=== PATIENT | female | born 1990 | race Caucasian/White ===

== ENCOUNTER → 2017-11-27 09:40 | Outpatient (CLI) | payer BC, SELFPAY ==
[2017-11-27 10:55] LABS: hCG Titer Quant., Serum 2 mIU/mL (<9 non-preg)
== END ==
PROVIDERS: Visit Provider Obstetrics & Gynecology Reproductive Endocrinology
DX: Z32.00 Encounter for pregnancy test, result unknown (principal)
CPT/HCPCS: 36415; 84702

== ENCOUNTER → 2019-05-20 | Outpatient (CLI) | payer BC, SELFPAY ==
[2019-05-20 09:13] LABS: hCG Titer Quant., Serum 208 mIU/mL (1-3)
== END | disposition home or self-care (01) ==
PROVIDERS: Referring Provider Obstetrics & Gynecology Reproductive Endocrinology; Visit Provider Obstetrics & Gynecology Reproductive Endocrinology
DX: Z32.00 Encounter for pregnancy test, result unknown (principal)
CPT/HCPCS: 36415; 84702

== ENCOUNTER → 2019-05-25 | Outpatient (CLI) | payer BC, SELFPAY ==
[2019-05-25 09:36] LABS: hCG Titer Quant., Serum 1664 mIU/mL (1-3)
== END | disposition home or self-care (01) ==
LOC: LAB 08:23
PROVIDERS: Referring Provider Obstetrics & Gynecology Reproductive Endocrinology; Visit Provider Obstetrics & Gynecology Reproductive Endocrinology
DX: Z32.01 Encounter for pregnancy test, result positive (principal)
CPT/HCPCS: 36415; 84702

== ENCOUNTER → 2019-07-20 | Outpatient (CLI) | payer BC, SELFPAY ==
[2019-07-20 09:44] LABS: hCG Titer Quant., Serum 8 mIU/mL (1-3)
== END | disposition home or self-care (01) ==
PROVIDERS: Referring Provider Obstetrics & Gynecology Reproductive Endocrinology; Visit Provider Obstetrics & Gynecology Reproductive Endocrinology
DX: O02.1 Missed abortion (principal)
CPT/HCPCS: 36415; 84144; 84702

== ENCOUNTER → 2019-07-22 | Outpatient (CLI) | payer BC, SELFPAY ==
[2019-07-22 10:58] LABS: Glucose 75GTT - Fasting 87 mg/dL (70-99)
[2019-07-22 11:04] LABS: Insulin 8.4 mU/L (2.6-37.6)
[2019-07-22 11:52] LABS: Glucose 75GTT - 30 minutes 107 mg/dL (100-160)
[2019-07-22 11:53] LABS: Glucose 75GTT - 60 minutes 100 mg/dL (100-160)
[2019-07-22 12:56] LABS: Glucose 75GTT - 120 minutes 81 mg/dL (70-140)
== END | disposition home or self-care (01) ==
LOC: LAB 10:02
PROVIDERS: Referring Provider Obstetrics & Gynecology Reproductive Endocrinology; Visit Provider Obstetrics & Gynecology Reproductive Endocrinology
DX: Z31.41 Encounter for fertility testing (principal)
CPT/HCPCS: 36415; 82951; 82952; 83525

== ENCOUNTER → 2019-07-27 | Outpatient (CLI) | payer BC, SELFPAY ==
[2019-07-27 09:13] LABS: hCG Titer Quant., Serum 5 mIU/mL (1-3)
== END | disposition home or self-care (01) ==
LOC: LAB 08:32
PROVIDERS: Referring Provider Obstetrics & Gynecology Reproductive Endocrinology; Visit Provider Obstetrics & Gynecology Reproductive Endocrinology
DX: O20.0 Threatened abortion (principal)
CPT/HCPCS: 36415; 84702

== ENCOUNTER → 2019-07-29 | Outpatient (CLI) | payer BC, SELFPAY ==
[2019-07-29 13:54] LABS: hCG Titer Quant., Serum 4 mIU/mL (1-3)
== END | disposition home or self-care (01) ==
LOC: LAB 13:23
PROVIDERS: Referring Provider Obstetrics & Gynecology Reproductive Endocrinology; Visit Provider Obstetrics & Gynecology Reproductive Endocrinology
DX: O20.0 Threatened abortion (principal)
CPT/HCPCS: 36415; 84702

== ENCOUNTER → 2019-07-31 | Outpatient (CLI) | payer BC, SELFPAY ==
[2019-07-31 09:04] LABS: hCG Titer Quant., Serum 4 mIU/mL (1-3)
== END | disposition home or self-care (01) ==
PROVIDERS: Referring Provider Obstetrics & Gynecology Reproductive Endocrinology; Visit Provider Obstetrics & Gynecology Reproductive Endocrinology
DX: O20.0 Threatened abortion (principal)
CPT/HCPCS: 36415; 84702

== ENCOUNTER 2020-05-01 03:45 | Outpatient (CLI) | payer BC, SELFPAY ==
[2020-05-01 03:52] VITALS: BMI 25.8
[2020-05-01 04:02] VITALS: BP 133/84; PULSE 100
[2020-05-01 04:03] VITALS: PULSE 99; TEMP 37.2; O2SAT 99
[2020-05-01 04:49] LABS: Absolute Neutrophil Count 13.1 X10^3/uL (2.0-7.7); Basophil# 0.02 X10^3/uL; Basophil% 0.1 % (0-1); Eosinophil# 0.08 X10^3/uL; Eosinophils% 0.5 % (0-5); Hematocrit 38.1 % (37-47); Hemoglobin 12.9 g/dL (12.0-15.0); Lymphocyte % 9.4 % (19-41); Mean Corp Hgb Conc 33.9 g/dL (32-36); Mean Corpuscular Hgb 30.9 pg (27.0-32.0); Mean Corpuscular Volume 91.4 fL (81-99); Mean Platelet Vol. 9.5 fl (6.2-12.0); Monocyte# 1.14 X10^3/uL; Monocyte% 7.1 % (0-10); NRBC Flagged by Analyzer 0 % (0-5); Neutrophil % 81.9 % (47-70); Platelet Count 284 K/mm3 (150-450); RBC Distribution Width CV 12.5 % (11.6-14.6); Red Blood Count 4.17 M/mm3 (4.2-5.4)
[2020-05-01 05:01] VITALS: BP 118/75; PULSE 99; TEMP 37; O2SAT 98
[2020-05-01 05:07] LABS: Fibrinogen 470 mg/dl (203-444)
--- NOTE | 2020-05-01 10:29 | OB.TRI.PN_ITS ---
Progress Notes Date of Service: 05/01/20 Progress Note: 29-year-old presents at 36 weeks with vaginal bleeding. Patient is receiving care by a provider in [place] and presented today with some vaginal bleeding. She has occasional contractions and on the monitor heart rate tracing is 130s moderate variability reactive no decelerations category 1 tracing toco every 2 3 to 5 minutes but patient reports contractions is nonpainful Scant vaginal bleeding seen and cervix is 1 to 2 cm with no cervical change after short term observation and rechecking her cervix. CBC, fibrinogen, and type and screen within normal limits. Recommend follow-up with her regular physician this week. Laboratory Studies: Laboratory Tests 05/01/20 05/01/20 05/01/20 Range/Units 04:35 04:35 04:35 WBC (4.4-11.0) K/mm3 RBC (4.2-5.4) M/mm3 Hgb (12.0-15.0) g/dL Hct (37-47) % MCV (81-99) fL MCH (27.0-32.0) pg MCHC (32-36) g/dL RDW Std Deviation (35.1-43.9) fl RDW Coeff of Jm (11.6-14.6) % Plt Count (150-450) K/mm3 MPV (6.2-12.0) fl Immature Gran % (Auto) (0.0-0.9) % Neut % (Auto) (47-70) % Lymph % (Auto) (19-41) % [place] % (Auto) (0-10) % Eos % (Auto) (0-5) % Baso % (Auto) (0-1) % Absolute Neuts (auto) (2.0-7.7) X10^3/uL Absolute Lymphs (auto) (0.83-4.51) X10^3/uL Nucleated RBC % (0-5) % Fibrinogen 470 H (203-444) mg/dl Blood Type Antibody Screen NEGATIVE Antibody Identification Screen NEGATIVE (NEGATIVE) Baby's Blood Type Not Reportable Baby's PEDRO LUIS Not Reportable 05/01/20 05/01/20 Range/Units 04:35 04:35 WBC 16.0 H (4.4-11.0) K/mm3 RBC 4.17 L (4.2-5.4) M/mm3 Hgb 12.9 (12.0-15.0) g/dL Hct 38.1 (37-47) % MCV 91.4 (81-99) fL MCH 30.9 (27.0-32.0) pg MCHC 33.9 (32-36) g/dL RDW Std Deviation 41.0 (35.1-43.9) fl RDW Coeff of Jm 12.5 (11.6-14.6) % Plt Count 284 (150-450) K/mm3 MPV 9.5 (6.2-12.0) fl Immature Gran % (Auto) 1.000 H (0.0-0.9) % Neut % (Auto) 81.9 H (47-70) % Lymph % (Auto) 9.4 L (19-41) % [place] % (Auto) 7.1 (0-10) % Eos % (Auto) 0.5 (0-5) % Baso % (Auto) 0.1 (0-1) % Absolute Neuts (auto) 13.1 H (2.0-7.7) X10^3/uL Absolute Lymphs (auto) 1.50 (0.83-4.51) X10^3/uL Nucleated RBC % 0 (0-5) % Fibrinogen (203-444) mg/dl Blood Type O NEGATIVE Antibody Screen Not Reportable Antibody Identification Cancelled Screen (NEGATIVE) Baby's Blood Type Baby's PEDRO LUIS - Problem List (1) Vaginal bleeding during Status: Acute Multi Select Codes - Urinary/Genital Urinary/Genital CPT Codes: 34830-63 non-stress test Interp
== END 2020-05-01 05:30 | disposition home or self-care (01) ==
PROVIDERS: Referring Provider Obstetrics & Gynecology; Visit Provider Obstetrics & Gynecology
DX: O46.93 Antepartum hemorrhage, unspecified, third trimester (principal); Z3A.36 36 weeks gestation of pregnancy
CPT/HCPCS: 36415; 59025; 59050; 85025; 85384; 85461; 86850; 86900; 86901; 99218; G0378

== ENCOUNTER → 2022-05-12 | Outpatient (CLI) | payer BC, SELFPAY ==
[2022-05-12 09:51] LABS: T4 Free Direct 1.18 ng/dL (0.76-1.46); Thyroid Stim Hormone (TSH) 2.04 uIU/mL (0.358-3.74)
[2022-05-15 00:07] LABS: Thyroid Peroxidase AB 9 IU/mL (0-34)
[2022-05-15 13:57] LABS: Thyroglobulin Antibody < 1.0 IU/mL (0.0-0.9)
== END | disposition home or self-care (01) ==
LOC: LAB 08:56
PROVIDERS: Referring Provider Obstetrics & Gynecology Reproductive Endocrinology; Visit Provider Obstetrics & Gynecology Reproductive Endocrinology
DX: O26.20 Pregnancy care for patient with recurrent pregnancy loss, unspecified trimester (principal)
CPT/HCPCS: 36415; 84439; 84443; 86376; 86800

== ENCOUNTER → 2022-07-09 | Outpatient (CLI) | payer BC, SELFPAY ==
[2022-07-09 08:13] LABS: hCG Titer Quant., Serum 457 mIU/mL (1-3)
== END | disposition home or self-care (01) ==
LOC: LAB 06:04
PROVIDERS: Referring Provider Obstetrics & Gynecology Reproductive Endocrinology; Visit Provider Obstetrics & Gynecology Reproductive Endocrinology
DX: Z13.29 Encounter for screening for other suspected endocrine disorder (principal)
CPT/HCPCS: 36415; 84702

== ENCOUNTER → 2022-07-11 | Outpatient (CLI) | payer BC, SELFPAY ==
[2022-07-11 07:15] LABS: hCG Titer Quant., Serum 1112 mIU/mL (1-3)
== END | disposition home or self-care (01) ==
PROVIDERS: Referring Provider Obstetrics & Gynecology Reproductive Endocrinology; Visit Provider Obstetrics & Gynecology Reproductive Endocrinology
DX: Z13.29 Encounter for screening for other suspected endocrine disorder (principal)
CPT/HCPCS: 36415; 84702

== ENCOUNTER 2022-11-12 20:35 | Inpatient (IN) | payer BC, SELFPAY ==
[2022-11-12] VITALS (9 sets, daily range): BP systolic 53–141; BP diastolic 30–82; PULSE 97–115; RESP 14; TEMP 36.8; O2SAT 97–99; BMI 24.7
[2022-11-12 20:38] LABS: Absolute Lymphocyte Count 1.98 X10^3/uL (0.83-4.51); Absolute Neutrophil Count 11.3 X10^3/uL (2.0-7.7); Basophil# 0.02 X10^3/uL; Basophil% 0.1 % (0-1); Eosinophil# 0.08 X10^3/uL; Eosinophils% 0.6 % (0-5); Hematocrit 35.8 % (37-47); Hemoglobin 12.6 g/dL (12.0-15.0); Lymphocyte # 1.98 X10^3/ul (0.83-4.51); Lymphocyte % 13.8 % (19-41); Mean Corp Hgb Conc 35.2 g/dL (32-36); Mean Corpuscular Volume 88.2 fL (81-99); Mean Platelet Vol. 9.2 fl (6.2-12.0); Monocyte# 0.86 X10^3/uL; NRBC Flagged by Analyzer 0 % (0-5); Neutrophil # 11.31 X10^3/uL (2.7-7.7); Neutrophil % 78.9 % (47-70); Platelet Count 250 K/mm3 (150-450); RBC Distribution Width CV 13.4 % (11.6-14.6); RBC Distribution Width SD 42.8 fl (35.1-43.9); Red Blood Count 4.06 M/mm3 (4.2-5.4); White Blood Count 14.3 K/mm3 (4.4-11.0)
[2022-11-12] MEDS: fentaNYL 100 MCG/2 ML Ampul IV (20:58)
[2022-11-12] MEDS: Lactated Ringers 1,000 ML 50 ML IV (21:04)
--- NOTE | 2022-11-12 21:09 | HP.PCM.OB_ITS ---
History and Physical Date of Admission: 11/12/22 HPI: 32-year-old G5, P1 at 22/1 weeks, BRODY 03/16/2023 by IVF, admitted for labor. Patient was using the restroom and felt a bulge of membranes, pushed it back up. Was not having any contractions, but now is more comfortable. Denies headache or vision changes, chest pain or shortness of breath, nausea or vomiting, fevers or chills. Denies leaking of fluid or vaginal bleeding. complicated by: Recurrent loss, IVF , MADHU-1 sees EGG PASTEURIZER in [place] EGG PASTEURIZER history G1: First trimester SAB G2:First trimester SAB G3: First trimester SAB G4: 39-week no complications in the G5: current Medical history: 1.MADHU-1 incidental finding on IVF work-up Surgical history: 1. Dilation curettage 2. section 3. Laparoscopy for endometriosis Medications: 1. Vitamin D 2. vitamin Allergies: Adhesive tape cause rash Social history: Denies tobacco, alcohol, drug use Family history: Denies contributory history Review of system: Negative otherwise stated above Physical exam: General: On admission comfortable, getting increasingly uncomfortable in no acute distress HEENT: Normocephalic/atraumatic Cardiorespiratory: No increased effort Abdomen: Soft, nontender, gravid Extremities no edema Neurologic: Cranial nerves II through XII grossly intact, no focal deficits Musculoskeletal: Strength out of 5 throughout extremities Cervical exam: Membranes visualized on speculum exam, no cervix noted, no cervix on cervical exam heart rate:150s toco: irregular Assessment/plan: 32-year-old G5, P1 at 22/1 weeks, BRODY 03/16/2023 by IVF, admitted for labor. complicated by: Recurrent loss, IVF , MADHU- 1. ?Patient admitted in labor. At 22 weeks very low chance of survival with results Tatian, if baby were to survive resuscitation there would be multiple potential long-term sequelae including intraventricular hemorrhage, necrotizing enterocolitis, respiratory distress, eye prematurity, long-term NICU stay. Lengthy discussion had with patient about resuscitation, limited indication at this gestational age for Celestone or magnesium for neuro protection due to low chance of viability. also had this conversation with the patient. Patient declines any resuscitation. All questions were answered. She was clear on her decision and understands that baby will without resuscitation. She also understands the potential long- term sequelae of resuscitation. Will not plan to resuscitate baby at delivery. ?Plan for expectant management at this time. Patient's is en route. Reviewed plan of care and patient decisions with hot air furnace installer repairer, nursing as well.
--- NOTE | 2022-11-12 21:17 | PN.OBGYN_ITS ---
Objective Data Objective Data Vital Signs: Vital Signs Pulse BP Pulse Ox 115 H 141/82 H 99 11/12/22 20:03 11/12/22 19:51 11/12/22 20:03 Weight: 65.431 kg Body Mass Index (BMI) 24.7 Lab / Micro Data Result Diagrams: 11/12/22 20:15 Labs: Laboratory Results - last 24 hr 11/12/22 20:15: WBC 14.3 H, RBC 4.06 L, Hgb 12.6, Hct 35.8 L, MCV 88.2, MCH 31.0, MCHC 35.2, RDW Std Deviation 42.8, RDW Coeff of Jm 13.4, Plt Count 250, MPV 9.2, Immature Gran % (Auto) 0.600, Neut % (Auto) 78.9 H, Lymph % (Auto) 13.8 L, [place] % (Auto) 6.0, Eos % (Auto) 0.6, Baso % (Auto) 0.1, Absolute Neuts (auto) 11.3 H, Absolute Lymphs (auto) 1.98, Nucleated RBC % 0 11/12/22 20:15: Blood Type O NEGATIVE, Antibody Screen NEGATIVE Physical Exam Const alert and oriented x3 HEENT normocephalic Resp normal respiratory effort GI soft to palpation and non-tender Inspection: gravid Narrative: Spontaneous rupture of membranes. Extremity no pedal edema Neuro moves all extremities, no focal motor deficits and no sensory deficits noted Assessment & Plan (1) Active labor: PLAN: Repeat bedside ultrasound appears to be breech position. Heart rate present. Patient had spontaneous rupture of membranes. Anticipate vaginal delivery. Continue expectant management.
--- NOTE | 2022-11-12 22:32 | PLAC_PTH ---
PATIENT: OLVIN MA LOC: WP U#:[id number] AGE/SX: 32/F ROOM: WP021 RE11/12/[address]: Dr. Makenna Ferreira DO : 1990 BED: 1 DIS: 11/14/2022 SPEC #: [id number] RECD: 11/13/22 02:52 STATUS: OANH REKetty #: [id number] GODWIN: 11/12/22 22:[address]: Makenna Ferreira DEPT: SURGICAL PATHOLOGY RECD BY: Tania Hannon ENTERED: 11/13/22 10:09 SP TYPE: PLACENTA OTHR DR: No Primary Care Phys Tissues: Placenta, NOS Procedures: Surgery Specimen Level IV HEADER OPERATION: Vaginal delivery PRE-OP DIAGNOSIS: demise TISSUE SUBMITTED: Placenta MICROSCOPIC DIAGNOSIS Placenta: Placental disc ? immature placenta (191 gm), fragmented. Membranes - not present. Umbilical cord - three blood vessels and no pathologic diagnosis. Blood clots (44 gm). SJ:avel 11/14/2022 MICROSCOPIC DESCRIPTION Slides are reviewed. GROSS DESCRIPTION Received in fixative is one container labeled with the patient's name and designated placenta. The specimen consists of a placenta in multiple pieces weighing in aggregate 191 gm and measuring in aggregate 14 x 10 x 3 cm. The surface is without any mass lesion. The maternal surface is disrupted. A few cotyledons are noted. Sections do not reveal any mass lesions. Membranes are not identified. A small segment of umbilical cord is present measuring 3 cm in length and 0.8 cm in diameter. The umbilical cord is inserted centrally. Sections reveal three blood vessels Also present in the container are multiple fragments of blood clot weighing in aggregate 44 gm and measuring in aggregate 9 x 6 x 3 cm. Senior Market Research Analyst sections are submitted in five cassettes as follows: 1 - umbilical cord, 25?- placental disc including maternal and surfaces. / VELMA:avel 11/13/2022 TC:5 CPT: 51167
[2022-11-12 23:54] LABS: Basophil# 0.03 X10^3/uL; Basophil% 0.1 % (0-1); Differential Indicated SCAN CRITERIA MET; Eosinophil# 0.01 X10^3/uL; Hematocrit 32.1 % (37-47); Lymphocyte % 6.8 % (19-41); Mean Corp Hgb Conc 34.3 g/dL (32-36); Mean Corpuscular Hgb 30.9 pg (27.0-32.0); Mean Corpuscular Volume 90.2 fL (81-99); Mean Platelet Vol. 9.5 fl (6.2-12.0); Monocyte# 0.75 X10^3/uL; Monocyte% 3.2 % (0-10); NRBC Flagged by Analyzer 0 % (0-5); Neutrophil % 89.2 % (47-70); POSITIVE DIFFERENTIAL YES; Platelet Count 308 K/mm3 (150-450); RBC Distribution Width CV 13.3 % (11.6-14.6); RBC Distribution Width SD 43.6 fl (35.1-43.9); Red Blood Count 3.56 M/mm3 (4.2-5.4); White Blood Count 23.6 K/mm3 (4.4-11.0)
[2022-11-12] MEDS: Methylergonovine 0.2 MG/ML Ampul IM (23:54)
[2022-11-12] MEDS: Oxytocin 15 Units/NS 250ml 15 UNITS/250 ML IV.SOLN 83 UNITS IV (23:59)
[2022-11-13] VITALS (46 sets, daily range): BP systolic 92–183; BP diastolic 52–118; PULSE 82–114; RESP 16; TEMP 36.7–37.3; O2SAT 80–100
[2022-11-13] MEDS: Carboprost Tromethamine 250 MCG/ML Ampul IM (00:06)
[2022-11-13] MEDS: miSOPROStol 200 MCG Tablet 1000 MCG RC (00:08)
--- NOTE | 2022-11-13 00:30 | EX.PCM.OBRPT ---
Vaginal Delivery Operative Information Date of Procedure: 11/12/22 Pre-Operative Diagnosis: labor Post-Operative Diagnosis: labor, demise Surgery / Procedure Performed: Spontaneous Vaginal Delivery Type of Anesthesia: None Estimated Blood Loss: 1500cc Findings Description of Procedure: Spontaneous vaginal delivery of female in the breech position. Breech position confirmed via ultrasound at bedside. buttocks delivered followed by bilateral legs. Arms swept across the chest. Head flexed and delivered. Large clot delivered immediately after baby. Baby placed on mom, cord clamped and cut. Delivered at 2232, time of . No movements or respiratory effort at time of delivery. confirmed with auscultation of no heart rate. Increase in bleeding noted after delivery. Placenta remained in place. Patient attempted to bear down to help deliver, cord evulsed. Patient began feeling lightheaded and was hypotensive. Based on symptoms, hypotension, bleeding and retained placenta, decision for exam under anesthesia and suction dilation curettage was made. Verbal consent was obtained from patient and her , patient taken to the OR. Two units of packed red blood cells were ordered to be infused. See operative note for further detail. Amniotic Fluid Description: Clear Infant A Gender: Female
--- NOTE | 2022-11-13 00:33 | PCM.OPRPT ---
Report of Operation Date of Procedure: 11/13/22 Pre-Operative Diagnosis: Retained placenta, hemorrhage Post-Operative Diagnosis: Retained placenta, hemorrhage Surgery/Procedure Performed:: Exam under anesthesia, suction dilation curettage Description of Surgical Findings:: Normal-appearing external genitalia. No vaginal lacerations. Cervix intact without lacerations. Placenta remaining in uterine cavity. Thin endometrial stripe with no blood flow noted on ultrasound at the end of procedure. Type of Anesthesia: MAC Specimen's removed: Placenta Estimated Blood Loss (mL): 600cc Fluids Replaced: 2100cc crystalloid, 1 and 1/3 units PRBC (400cc each unit) Description of Procedure: Indications/risk/benefits: This is a 32-year-old G5, P1 admitted at 22/1 weeks for previable labor. Patient had spontaneous rupture of membranes and delivered baby . Patient became hypotensive and symptomatic post delivery. Placental cord was avulsed, remained intrauterine. Based on symptoms, hypotension, bleeding and retained placenta, decision for exam under anesthesia and suction dilation curettage was made. Risks were discussed with the patient. Risks include but are not limited to: Risk of bleeding to the point transfusion, infection, injury to surrounding tissue including bowel/bladder/uterine perforation, VTE, ICU admission. Patient consented verbally to blood products. Verbal consent was obtained from patient and her for surgery, patient taken to the OR in an emergent fashion. Procedure: Patient taken to the operating room and MAC anesthesia induced. Patient placed in the dorsal lithotomy position and prepped and draped in usual sterile fashion. Bladder drained. Weighted speculum placed in the posterior vagina and retractor used to visualize the cervix. Portion of placenta manually extracted. Anterior lip of the cervix grasped with Allis clamp. Suction curettage completed in 360 degree manner to remove all remaining portions of placenta. Ultrasound was used to visualize endometrial cavity intermittently throughout the procedure. Patient received: IV Pitocin, Methergine x1, Hemabate x1, Cytotec 1000 mcg placed rectally. At the end of the procedure, ultrasound confirmed that the endometrial stripe was thin and without blood flow. Uterus was firm. Bleeding minimal. Weighted speculum removed. Allis clamp removed from cervix. UOP: 50cc Plan for CBC, CMP at 0600 Complications none
[2022-11-13] MEDS: Lactated Ringers 500 ML IV.SOLN. 125 ML IV (00:45)
[2022-11-13] MEDS: Acetaminophen 500 MG Tablet 1000 MG PO ×2 (02:18→08:31)
--- NOTE | 2022-11-13 02:20 | NURSING ---
2nd unit of PRBC's infused at this time, IV in left wrist SL
[2022-11-13] MEDS: 0.9% Saline Lock 10 ML Syringe IV ×2 (02:24→20:35)
--- NOTE | 2022-11-13 02:58 | NURSING ---
infants weight 530grams 28cm long head 20.5cm
--- NOTE | 2022-11-13 03:16 | NURSING ---
infant weight obtained, 530 grams, 11.25 inches long. head circumference 20.5 cm
--- NOTE | 2022-11-13 04:25 | PCM.PN.OB ---
Subjective Subjective Patient tearful in bed sitting upright holding baby. Reports that bleeding is minimal. Feeling well otherwise. Objective Data Objective Data Vital Signs: Vital Signs Temp Pulse Resp BP Pulse Ox O2 Del Method 98.8 F 91 14 103/61 98 Room Air 11/13/22 02:01 11/13/22 02:46 11/12/22 21:15 11/13/22 02:46 11/13/22 02:31 11/12/22 21:15 Oxygen Delivery Method Room Air Weight: 65.431 kg Body Mass Index (BMI) 24.7 Intake & Output: Intake and Output for Last 24 Hours 11/11/22 11/12/22 11/13/22 23:59 23:59 23:59 Intake Total 701.67 / 701.67 Output Total 100 / 100 4275 / 4275 Balance -100 / -100 -3573.33 / -3573.33 Lab / Micro Data Result Diagrams: 11/12/22 23:30 Labs: Laboratory Results - last 24 hr 11/12/22 20:15: WBC 14.3 H, RBC 4.06 L, Hgb 12.6, Hct 35.8 L, MCV 88.2, MCH 31.0, MCHC 35.2, RDW Std Deviation 42.8, RDW Coeff of Jm 13.4, Plt Count 250, MPV 9.2, Immature Gran % (Auto) 0.600, Neut % (Auto) 78.9 H, Lymph % (Auto) 13.8 L, [place] % (Auto) 6.0, Eos % (Auto) 0.6, Baso % (Auto) 0.1, Absolute Neuts (auto) 11.3 H, Absolute Lymphs (auto) 1.98, Nucleated RBC % 0 11/12/22 20:15: Blood Type O NEGATIVE, Antibody Screen NEGATIVE, Crossmatch See Detail 11/12/22 23:30: WBC 23.6 H, RBC 3.56 L, Hgb 11.0 L, Hct 32.1 L, MCV 90.2, MCH 30.9, MCHC 34.3, RDW Std Deviation 43.6, RDW Coeff of Jm 13.3, Plt Count 308, MPV 9.5, Immature Gran % (Auto) 0.700, Neut % (Auto) 89.2 H, Lymph % (Auto) 6.8 L, [place] % (Auto) 3.2, Eos % (Auto) 0.0, Baso % (Auto) 0.1, Absolute Neuts (auto) 21.0 H, Absolute Lymphs (auto) 1.60, Nucleated RBC % 0 Physical Exam Const alert, oriented x3 and no apparent distress HEENT normocephalic Head and Scalp: atraumatic Neck full ROM Resp normal respiratory effort Cardio regular rate GI normal to inspection, nondistended, normoactive bowel sounds GI Narrative: Uterus 2 cm below umbilicus Back/Spine normal ROM Extremity normal to inspection Extremity Narrative: Minimal pedal edema Neuro no focal motor deficits and no sensory deficits noted Psych mental status grossly normal and affect normal Assessment & Plan (1) Vaginal delivery: PLAN: day 1 status post previable delivery optimized. Likely secondary to abruption. Complicated by hemorrhage with suction dilation and curettage. Patient received 2 units of packed red blood cells, Methergine, Hemabate, Cytotec, Pitocin. Bleeding is greatly improved. Vital signs are stable. CBC pending at 6 AM. We will plan to likely repeat later today as well. Findings and surgery discussed with patient and her . They declined autopsy. (2) hemorrhage: (3) demise:
[2022-11-13 06:05] LABS: Absolute Lymphocyte Count 1.54 X10^3/uL (0.83-4.51); Absolute Neutrophil Count 21.1 X10^3/uL (2.0-7.7); Basophil# 0.03 X10^3/uL; Basophil% 0.1 % (0-1); Hematocrit 29.8 % (37-47); Hemoglobin 10.4 g/dL (12.0-15.0); Lymphocyte # 1.54 X10^3/ul (0.83-4.51); Lymphocyte % 6.4 % (19-41); Mean Corp Hgb Conc 34.9 g/dL (32-36); Mean Corpuscular Hgb 31.1 pg (27.0-32.0); Mean Corpuscular Volume 89.2 fL (81-99); Mean Platelet Vol. 9.2 fl (6.2-12.0); Monocyte# 0.99 X10^3/uL; Monocyte% 4.1 % (0-10); NRBC Flagged by Analyzer 0 % (0-5); Neutrophil % 88.4 % (47-70); POSITIVE DIFFERENTIAL YES; Platelet Count 209 K/mm3 (150-450); RBC Distribution Width CV 13.2 % (11.6-14.6); RBC Distribution Width SD 43.7 fl (35.1-43.9); Red Blood Count 3.34 M/mm3 (4.2-5.4); White Blood Count 23.9 K/mm3 (4.4-11.0)
[2022-11-13 06:21] LABS: Differential Indicated SCAN CRITERIA MET
[2022-11-13 06:29] LABS: Differential Comment SCANNED
[2022-11-13 06:51] LABS: ALB/GLOB Ratio 0.9 RATIO (0.9-2.4); AST(SGOT) 12 U/L (15-37); Alanine Aminotransfer ALT/SGPT 17 U/L (13-56); Albumin, Serum 2.2 g/dL (3.2-5.0); Alkaline Phosphatase 52 U/L (45-117); Anion Gap 10 (5-15); BUN 7 mg/dL (7-18); Calcium,Total 7.6 mg/dL (8.5-10.1); Chloride 108 mmol/L (98-107); Creatinine, Serum 0.54 mg/dL (0.55-1.02); EST Glomerular Filtration Rate 139 mL/min (>60); Est Glom Filt Rate - Afr Amer 168 mL/min (>60); Estimated Creatinine Clearance 129.15 ml/min; Globulin 2.4 g/dL (2.2-4.2); Glucose 108 mg/dL (74-106); Potassium 3.9 mmol/L (3.5-5.1); Protein, Total 4.6 g/dL (6.4-8.2); Sodium Level 138 mmol/L (136-145)
[2022-11-13 16:37] LABS: Absolute Lymphocyte Count 2.39 X10^3/uL (0.83-4.51); Absolute Neutrophil Count 11.4 X10^3/uL (2.0-7.7); Basophil# 0.02 X10^3/uL; Basophil% 0.1 % (0-1); Eosinophil# 0.05 X10^3/uL; Eosinophils% 0.3 % (0-5); Hematocrit 25.8 % (37-47); Hemoglobin 8.9 g/dL (12.0-15.0); Lymphocyte # 2.39 X10^3/ul (0.83-4.51); Lymphocyte % 15.9 % (19-41); Mean Corp Hgb Conc 34.5 g/dL (32-36); Mean Corpuscular Hgb 30.6 pg (27.0-32.0); Mean Corpuscular Volume 88.7 fL (81-99); Mean Platelet Vol. 9.3 fl (6.2-12.0); Monocyte# 1.11 X10^3/uL; Monocyte% 7.4 % (0-10); NRBC Flagged by Analyzer 0 % (0-5); Neutrophil # 11.35 X10^3/uL (2.7-7.7); Neutrophil % 75.8 % (47-70); Platelet Count 205 K/mm3 (150-450); RBC Distribution Width CV 13.6 % (11.6-14.6); RBC Distribution Width SD 43.8 fl (35.1-43.9); Red Blood Count 2.91 M/mm3 (4.2-5.4)
--- NOTE | 2022-11-13 17:10 | CASEMGMT ---
Social Work Labor and Delivery Unit Consult received for /grief/loss/bereavement Brief chart review completed. Noted that ANAHY is 5, para 1. 1 through 3 reportedly spontaneous miscarriage. 4 was a 39-week delivery via . 5, the delivery during this admission was a 22-week delivery, and infant girl loss. Noted that this was a result of IVF. Met with patient/mother of baby (MOB) Tasha and father of baby (FOB) Toni, introducing to self and social work role. Both parents receptive and engaged in speaking with child protective services social worker. Both held good eye contact and appropriate. He and FOB report first 3 losses where in the first trimester. Living child's Raghu and baby girl delivered this admission is to be named Nyasia. Parents report that Nyasia was the first attempt since Raghu was born, who was also reporting the results of IVF. MOB and FOB report that Raghu came to the hospital to see and say goodbye to Nyasia. Discussed depression including grief. Parents talked briefly about their infertility journey. Emotional support provided. Supportive listening and reflection provided. Provided the parents with information on depression anxiety, and infant loss, as well as grief. Parents excepting of information provided. Also provided local resources for counseling for additional support should parents decide they would desire this in the future. Parents expressed thanks for social work visit. -GONZALO Yang, AFTER SCHOOL TUTOR *This note was generated with Insmedation software. It may contain incorrect words, spelling, and punctuation that were not noted in review of the chart prior to signing*
[2022-11-14 02:00] VITALS: BP 110/60; PULSE 90; RESP 17; TEMP 36.4
[2022-11-14 02:18] VITALS: BP 110/60; PULSE 90
[2022-11-14 05:49] LABS: Absolute Lymphocyte Count 1.69 X10^3/uL (0.83-4.51); Absolute Neutrophil Count 9.1 X10^3/uL (2.0-7.7); Basophil# 0.04 X10^3/uL; Basophil% 0.3 % (0-1); Eosinophil# 0.06 X10^3/uL; Eosinophils% 0.5 % (0-5); Hematocrit 24.3 % (37-47); Hemoglobin 8.2 g/dL (12.0-15.0); Lymphocyte # 1.69 X10^3/ul (0.83-4.51); Lymphocyte % 14.5 % (19-41); Mean Corp Hgb Conc 33.7 g/dL (32-36); Mean Corpuscular Hgb 30.9 pg (27.0-32.0); Mean Corpuscular Volume 91.7 fL (81-99); Mean Platelet Vol. 9.4 fl (6.2-12.0); Monocyte# 0.71 X10^3/uL; Monocyte% 6.1 % (0-10); NRBC Flagged by Analyzer 0 % (0-5); Neutrophil # 9.07 X10^3/uL (2.7-7.7); Neutrophil % 77.7 % (47-70); Platelet Count 189 K/mm3 (150-450); RBC Distribution Width CV 13.9 % (11.6-14.6); RBC Distribution Width SD 45.3 fl (35.1-43.9); Red Blood Count 2.65 M/mm3 (4.2-5.4); White Blood Count 11.7 K/mm3 (4.4-11.0)
--- NOTE | 2022-11-14 06:49 | DS.PCM_ITS ---
Discharge Summary Date of Admission: 11/12/22 Date of Discharge: 11/14/22 Summary: Patient arrived on 11/12/2022 at 22 weeks in labor. Patient was well educated on options including resuscitation discussed with NICU team. Refer to documentation for decision making. Patient subsequently delivered vaginally 11/13/2022. Patient with vaginal bleeding after delivery had D&C, hemorrhage noted. EBL 2100 cc. Given 2 units packed red blood cells Methergine, Hemabate, Cytotec, Pitocin. Patient monitored and hemoglobin stabilized. Discharge home on 11/14/2022 Meaningful Use Info Meaningful Use Diagnoses (Choose all that apply): None applicable Discharge Plan Admission Admit Date/Time: 11/12/22 20:35 Primary Reason for Your Visit: Labor Attending Provider: Makenna Ferreira Primary Care Provider: Skye Metz Primary Instructions Additional Instructions / Restrictions: Regular diet. Okay to shower. No intercourse for 4 to 6 weeks. Weightbearing as tolerated. Call if fevers, chills, chest pain, shortness of breath. Follow- up 2 weeks Discharge Orders/Prescriptions Prescriptions: No Action [id number] acid 1 EACH tablet 1 tab PO DAILY Referrals / Follow Up: Care PhysicianSkye Primary [Primary Care Provider] - Disposition Disposition (needs filled in before D/C Order can be placed): Home, Self Care
--- NOTE | 2022-11-14 06:52 | PN.OBGYN_ITS ---
Subjective Subjective No overnight complaints. Asymptomatic. Ambulating with ease. Voiding spontaneously. Tolerating regular diet. Minimal vaginal bleeding Objective Data Objective Data Vital Signs: Vital Signs Temp Pulse Resp BP Pulse Ox O2 Del Method 97.5 F L 90 17 110/60 98 Room Air 11/14/22 02:00 11/14/22 02:18 11/14/22 02:00 11/14/22 02:18 11/13/22 02:31 11/12/22 21:15 Oxygen Delivery Method Room Air Weight: 144 lb 4 oz Body Mass Index (BMI) 24.7 Intake & Output: Intake and Output for Last 24 Hours 11/12/22 11/13/22 11/14/22 23:59 23:59 23:59 Intake Total 701.67 / 701.67 Output Total 100 / 100 4275 / 4275 Balance -100 / -100 -3573.33 / -3573.33 Lab / Micro Data Result Diagrams: 11/14/22 05:27 11/13/22 05:49 Labs: Laboratory Results - last 24 hr 11/13/22 16:20: WBC 15.0 H, RBC 2.91 L, Hgb 8.9 L, Hct 25.8 L, MCV 88.7, MCH 30.6, MCHC 34.5, RDW Std Deviation 43.8, RDW Coeff of Jm 13.6, Plt Count 205, MPV 9.3, Immature Gran % (Auto) 0.500, Neut % (Auto) 75.8 H, Lymph % (Auto) 15.9 L, [place] % (Auto) 7.4, Eos % (Auto) 0.3, Baso % (Auto) 0.1, Absolute Neuts (auto) 11.4 H, Absolute Lymphs (auto) 2.39, Nucleated RBC % 0 11/14/22 05:27: WBC 11.7 H, RBC 2.65 L, Hgb 8.2 L, Hct 24.3 L, MCV 91.7, MCH 30.9, MCHC 33.7, RDW Std Deviation 45.3 H, RDW Coeff of Jm 13.9, Plt Count 189, MPV 9.4, Immature Gran % (Auto) 0.900, Neut % (Auto) 77.7 H, Lymph % (Auto) 14.5 L, [place] % (Auto) 6.1, Eos % (Auto) 0.5, Baso % (Auto) 0.3, Absolute Neuts (auto) 9.1 H, Absolute Lymphs (auto) 1.69, Nucleated RBC % 0 Physical Exam Const alert, oriented x3, no apparent distress, average body habitus, healthy appearing and well nourished HEENT normocephalic and moist oral mucous membranes Eyes PERRL Neck full ROM Extremity normal to inspection and full ROM Neuro moves all extremities and no focal motor deficits Psych mental status grossly normal and affect normal Assessment & Plan (1) Vaginal delivery: PLAN: day 1 status post delivery of 22-week demise. And hemorrhage status post D&C, status post 2 units packed red blood cells and Cytotec, Methergine, Hemabate, Pitocin. Vital signs stable hemoglobin stable. Patient asymptomatic. Patient desires discharge home today, okay to discharge home today and follow-up outpatient. To take outpatient iron tablets
[2022-11-14 07:53] VITALS: BP 119/62; PULSE 93
[2022-11-14 07:54] VITALS: BP 119/62; PULSE 93; RESP 18; TEMP 37.1; O2SAT 98
[2022-11-16 09:43] LABS: Pathology Specimen OB SEE PATHOLOGY REPORT
== END 2022-11-14 09:15 | disposition home or self-care (01) | DRG 796 ==
LOC: WPOUT 20:42 → WP 20:42
PROVIDERS: Admitting Provider Student in an Organized Health Care Education/Training Program; Visit Provider Student in an Organized Health Care Education/Training Program
DX: O60.12X0 Preterm labor second trimester with preterm delivery second trimester, not applicable or unspecified (principal); Z37.1 Single stillbirth; O45.92 Premature separation of placenta, unspecified, second trimester; O72.1 Other immediate postpartum hemorrhage; O36.4XX0 Maternal care for intrauterine death, not applicable or unspecified; O72.0 Third-stage hemorrhage; O99.43 Diseases of the circulatory system complicating the puerperium; I95.9 Hypotension, unspecified; O26.22 Pregnancy care for patient with recurrent pregnancy loss, second trimester; O32.1XX0 Maternal care for breech presentation, not applicable or unspecified; Z3A.22 22 weeks gestation of pregnancy
CPT/HCPCS: 59025; 59050; 76815; 80053; 85025; 85461; 86850; 86900; 86901; 86920; 88305; 88307; 99221; J7120; P9016; A4216; G0378; J2405; J2790

== ENCOUNTER → 2023-06-19 | Outpatient (CLI) | payer BC, SELFPAY ==
[2023-06-19 17:31] LABS: Thyroid Stim Hormone (TSH) 2.65 uIU/mL (0.358-3.74)
[2023-06-20 14:12] LABS: T4 Free Direct 1.14 ng/dL (0.76-1.46)
== END | disposition home or self-care (01) ==
LOC: LAB 16:38
PROVIDERS: Referring Provider Obstetrics & Gynecology Reproductive Endocrinology; Visit Provider Obstetrics & Gynecology Reproductive Endocrinology
DX: E03.9 Hypothyroidism, unspecified (principal)
CPT/HCPCS: 36415; 84436; 84439; 84443

== ENCOUNTER → 2023-07-19 | Outpatient (CLI) | payer BC, SELFPAY ==
[2023-07-19 08:26] LABS: Thyroid Stim Hormone (TSH) 1.85 uIU/mL (0.358-3.74)
== END | disposition home or self-care (01) ==
LOC: LAB 06:07
PROVIDERS: Referring Provider Obstetrics & Gynecology Reproductive Endocrinology; Visit Provider Obstetrics & Gynecology Reproductive Endocrinology
DX: Z13.29 Encounter for screening for other suspected endocrine disorder (principal)
CPT/HCPCS: 36415; 84439; 84443

== ENCOUNTER → 2023-10-17 | Outpatient (CLI) | payer BC, SELFPAY ==
[2023-10-17 09:10] LABS: Absolute Lymphocyte Count 1.42 X10^3/uL (0.83-4.51); Absolute Neutrophil Count 9.3 X10^3/uL (2.0-7.7); Basophil# 0.01 X10^3/uL; Basophil% 0.1 % (0-1); Eosinophil# 0.18 X10^3/uL; Eosinophils% 1.5 % (0-5); Hematocrit 45.5 % (37-47); Hemoglobin 15.7 g/dL (12.0-15.0); Lymphocyte # 1.42 X10^3/ul (0.83-4.51); Lymphocyte % 12.2 % (19-41); Mean Corp Hgb Conc 34.5 g/dL (32-36); Mean Corpuscular Hgb 30.2 pg (27.0-32.0); Mean Corpuscular Volume 87.5 fL (81-99); Mean Platelet Vol. 9.3 fl (6.2-12.0); Monocyte# 0.71 X10^3/uL; Monocyte% 6.1 % (0-10); NRBC Flagged by Analyzer 0 % (0-5); Neutrophil % 79.7 % (47-70); Platelet Count 316 K/mm3 (150-450); RBC Distribution Width CV 11.9 % (11.6-14.6); RBC Distribution Width SD 38.2 fl (35.1-43.9); White Blood Count 11.7 K/mm3 (4.4-11.0)
== END | disposition home or self-care (01) ==
DX: Z67.91 Unspecified blood type, Rh negative (principal)
CPT/HCPCS: 36415; 85025; 86850; 86870; 86900; 86901

== ENCOUNTER → 2023-12-04 | Outpatient (CLI) | payer BC, SELFPAY | END | disposition home or self-care (01) | DX: O26.891 Other specified pregnancy related conditions, first trimester (principal); Z67.91 Unspecified blood type, Rh negative; O09.891 Supervision of other high risk pregnancies, first trimester; Z3A.00 Weeks of gestation of pregnancy not specified | CPT/HCPCS: 87077; 87086; 87088 ==

== ENCOUNTER → 2024-03-02 | Outpatient (CLI) | payer BC, SELFPAY ==
[2024-03-02 10:01] LABS: Glucose GTT-Gestation. Fasting 82 mg/dL (<105)
[2024-03-02 11:14] LABS: Glucose GTT-Gestational 1 Hr 151 mg/dL (<190)
[2024-03-02 12:05] LABS: Glucose GTT-Gestational 2 Hr 113 mg/dL (<165)
[2024-03-02 13:04] LABS: Glucose GTT-Gestational 3 Hr 87 L (<145)
== END | disposition home or self-care (01) ==
LOC: LAB 08:13
DX: O99.810 Abnormal glucose complicating pregnancy (principal); Z3A.00 Weeks of gestation of pregnancy not specified
CPT/HCPCS: 36415; 82951; 82952